=== PATIENT | male | born 1970 | race Two or more races ===

== ENCOUNTER 2020-07-18 17:17 | Outpatient (CLI) | payer OTHER, SELFPAY | END 2020-07-18 17:18 | disposition home or self-care (01) | LOC: ANHCOVIDVC 17:18 | PROVIDERS: PCP Emergency Medicine; Visit Provider Emergency Medicine | DX: Z23 Encounter for immunization (principal) | CPT/HCPCS: 0001A; 91300 ==

== ENCOUNTER 2020-08-08 17:12 | Outpatient (CLI) | payer OTHER, SELFPAY | END 2020-08-08 17:13 | disposition home or self-care (01) | LOC: ANHCOVIDVC 17:12 | PROVIDERS: PCP Emergency Medicine | DX: Z23 Encounter for immunization (principal) | CPT/HCPCS: 0002A; 91300 ==